=== PATIENT | female | born 1960 | race Caucasian/White ===

== ENCOUNTER 2018-11-27 11:54 | Emergency (ER) | payer BC, OTHER ==
[~2018-11-27] VITALS: Ht 172.7 cm; Wt 74.2 kg
--- NOTE | 2018-11-27 12:14 | NUR ---
Pt presents for CP to left chest since yesterday. Pt states pain radiating down arm yesterday and had trouble lifting arm. Tender to palp. SR on monitor. Pt NAD.
[2018-11-27] MEDS ORDERED: ASPIRIN 81 MG TABLET CHEW PO ONE (12:30)
[2018-11-27] MEDS ORDERED: NITROGLYCERIN SINGLE TAB 0.4 MG SL PRN (12:30)
[2018-11-27] MEDS ORDERED: SODIUM CHLORIDE FLUSH 10ML SYR IVF ONE (12:30)
[2018-11-27] MEDS ORDERED: NITROGLYCERIN SINGLE TAB 0.4 MG SL ONE ×2 (12:35→13:39)
[2018-11-27] MEDS ORDERED: ASPIRIN 81 MG TABLET CHEW ONE (12:35)
[2018-11-27 12:48] LABS: BASOPHILS # (AUTO) 0.06 x10^3/uL (0-0.1); BASOPHILS % (AUTO) 1 % (0-1); EOSINOPHILS # (AUTO) 0.14 x10^3/uL (0-0.4); EOSINOPHILS % (AUTO) 2 % (1-7); LYMPHOCYTES # (AUTO) 2.93 x10^3/uL (1-3.4); LYMPHOCYTES % (AUTO) 43 % (22-44); MD NO; MEAN CORPUSCULAR HEMOGLOBIN 27.9 pg (27.0-34.8); MEAN CORPUSCULAR HGB CONC 33.5 g/dL (32.4-35.8); MEAN CORPUSCULAR VOLUME 83.3 fL (80-100); MEAN PLATELET VOLUME 8.5 fL (7.4-10.4); MONOCYTES # (AUTO) 0.47 x10^3/uL (0.2-0.8); MONOCYTES % (AUTO) 7 % (2-9); NEUTROPHILS # (AUTO) 3.26 x10^3/uL (1.8-6.8); NEUTROPHILS % (AUTO) 48 % (42-75); PLATELET COUNT 252 x10^3/uL (130-400); RED BLOOD COUNT 5.12 x10^6/uL (3.82-5.3); RED CELL DISTRIBUTION WIDTH 13.1 % (9.6-15.2)
[2018-11-27 12:51] LABS: ALBUMIN 3.8 g/dL (3.4-5.0); ANION GAP 7 mmol/L (5-15); CHLORIDE 108 mmol/L (98-107); CREATININE 0.86 mg/dL (0.55-1.02)
[2018-11-27 12:55] LABS: TROPONIN I < 0.015 ng/mL (0.000-0.045)
--- NOTE | 2018-11-27 12:57 | NUR ---
Spoke with Wendie, pt's daughter. Would like to be kept updated. [phone]
--- NOTE | 2018-11-27 13:41 | NUR ---
Pt improved with nitro. 2nd 0.4mg given.
--- NOTE | 2018-11-27 14:18 | NUR ---
TASK RN: PT RESTING ON GURNEY. NADN. [place]. PT VERBALIZES SHE IS NOT SURE SHE WANTS TO STAY UNLESS HER INSURANCE IS ACTIVE. REGISTRATION ASSESSING IT.
[2018-11-27 14:45] VITALS: BP 129/46
--- NOTE | 2018-11-27 14:45 | NUR ---
TASK RN: PT ATTEMPTING TO FIND HER HEALTH INSURANCE.
--- NOTE | 2018-11-27 15:14 | NUR ---
TASK RN: PT UNABLE TO FIND INFORMATION ABOUT HER HEALTH INSURANCE. REGISTRATION ATTEMPTED MULTIPLE TIMES TO FIND PT INSURANCE AND WERE UNSUCCESSFUL. PT STATES SHE WANTS TO LEAVE AMA IF HER INSURANCE ISN'T ACTIVE. PT EDUCATED ON RISKS OF LEAVING AMA FOR CP THAT HAS RELIEF SECONDARY TO NITRO. PT VERBALIZES UNDERSTANDING. STILL WANTS TO LEAVE AMA. EDUCATED ON SX OF [place] FOR MEN AND WOMEN AND TO COME BACK FOR ANY INCREASED OR WORSENING SX. PT VERBALIZES UNDERSTANDING. PT SIGNED AMA SHEET. PLACED ON CHART. HORTENCIA HAMPTON'Alexandra.
== END 2018-11-27 15:18 | disposition home or self-care (01) ==
LOC: ED 13:39
DX: R07.2 Precordial pain (principal); M19.90 Unspecified osteoarthritis, unspecified site
CPT/HCPCS: 36415; 71045; 80048; 82040; 84484; 85025; 93005; 99284

== ENCOUNTER 2018-11-29 10:53 | Observation (INO) | payer BC, OTHER ==
[~2018-11-29] VITALS: Ht 172.7 cm; Wt 75.5 kg
--- NOTE | 2018-11-29 11:14 | NUR ---
pt was ambulatory to ED room 35. Voided urine specimen was provided. Dr Gomez now BS for exam. Pt A&OX4, resp even & unlabored, speech clear, skin WNL. States she was seen Thursday for CP, was advised to return, pt wanted to confirm insurance status prior to returning. C/O SOB interminttently "for awhile", "I thought it was my asthma", "I've noticed it more this month (past 30 days)". Currently: left-sided chest tightness lateral to sternum. Denies lightheadedness, dizziness, sweatiness, N/V. No meds taken for sx. Last oral intake: 929.
[2018-11-29] MEDS ORDERED: SODIUM CHLORIDE FLUSH 10ML SYR IVF ONE (11:30)
[2018-11-29] MEDS ORDERED: ASPIRIN 81 MG TABLET CHEW PO ONE (11:30)
[2018-11-29] MEDS ORDERED: ASTHMA INHALER (11:31)
[2018-11-29] MEDS ORDERED: PANT40TA5 PO (11:31)
[2018-11-29] MEDS ORDERED: [UNRECOGNIZED DRUG - REMARK] (11:31)
[2018-11-29 11:34] LABS: BASOPHILS # (AUTO) 0.05 x10^3/uL (0-0.1); BASOPHILS % (AUTO) 1 % (0-1); EOSINOPHILS # (AUTO) 0.21 x10^3/uL (0-0.4); EOSINOPHILS % (AUTO) 3 % (1-7); LYMPHOCYTES # (AUTO) 2.42 x10^3/uL (1-3.4); LYMPHOCYTES % (AUTO) 34 % (22-44); MD NO; MEAN CORPUSCULAR HEMOGLOBIN 27.4 pg (27.0-34.8); MEAN CORPUSCULAR HGB CONC 32.8 g/dL (32.4-35.8); MEAN CORPUSCULAR VOLUME 83.6 fL (80-100); MEAN PLATELET VOLUME 8.2 fL (7.4-10.4); MONOCYTES # (AUTO) 0.44 x10^3/uL (0.2-0.8); MONOCYTES % (AUTO) 6 % (2-9); NEUTROPHILS # (AUTO) 3.93 x10^3/uL (1.8-6.8); NEUTROPHILS % (AUTO) 56 % (42-75); PLATELET COUNT 265 x10^3/uL (130-400); RED CELL DISTRIBUTION WIDTH 13.2 % (9.6-15.2)
[2018-11-29] MEDS ORDERED: ASPIRIN 81 MG TABLET CHEW ONE (11:34)
[2018-11-29 12:19] LABS: ALBUMIN 3.9 g/dL (3.4-5.0); ANION GAP 6 mmol/L (5-15); CALCIUM 9.4 mg/dL (8.5-10.1); CHLORIDE 105 mmol/L (98-107)
[2018-11-29 12:24] LABS: CREATININE 1.04 mg/dL (0.55-1.02); TROPONIN I < 0.015 ng/mL (0.000-0.045)
--- NOTE | 2018-11-29 12:25 | NUR ---
PT RESTING COMFORTABLY ON BED, WATCHING TV. DENIES CHANGE IN CHEST PRESSURE. SIDE RAILS UP X2, CALL LIGHT W/IN REACH. AWAITING TEST RESULTS & DISPOSITION. MONITORING CONTINUES.
[2018-11-29] MEDS ORDERED: SODIUM CHLORIDE FLUSH 10ML SYR IVF PRN (13:00)
--- NOTE | 2018-11-29 13:17 | NUR ---
PT REPORT TO GERTRUDIS KIRK FOR ROOM [phone]
[2018-11-29] MEDS ORDERED: ONDANSETRON 2MG/ML, 2ML IVPush PRN (13:30)
[2018-11-29] MEDS ORDERED: ENALAPRILAT 1.25 MG/ML, 2ML IVPush PRN (13:30)
[2018-11-29] MEDS ORDERED: BISACODYL 10 MG SUPP PR PRN (13:30)
[2018-11-29] MEDS ORDERED: POLYETHYLENE GLYCOL 17 GM PACKET PO PRN (13:30)
[2018-11-29] MEDS ORDERED: DOCUSATE 100 MG CAPSULE PO PRN (13:30)
[2018-11-29] MEDS ORDERED: NITROGLYCERIN 0.4 MG BOTTLE (25 TABS) SL PRN (13:30)
[2018-11-29] MEDS ORDERED: LABETALOL 5MG/ML, 20ML IVPush PRN (13:30)
[2018-11-29] MEDS ORDERED: ONDANSETRON ODT 4 MG PO PRN (13:30)
[2018-11-29] MEDS ORDERED: FLUT1DIS3 INH (13:53)
[2018-11-29] MEDS ORDERED: ALBU8.5H8 INH (13:53)
[2018-11-29] MEDS ORDERED: BECL10.62 INH (13:53)
[2018-11-29 13:56] VITALS: BP 145/78
[2018-11-29 14:46] LABS: TROPONIN I < 0.015 ng/mL (0.000-0.045)
[2018-11-29 21:01] LABS: TROPONIN I < 0.015 ng/mL (0.000-0.045)
[2018-11-29 22:32] VITALS: BP 105/64
[2018-11-30] MEDS: ACETAMINOPHEN 325 MG TABLET PO PRN ×2 (01:49→08:09)
[2018-11-30 03:45] VITALS: BP 115/63
[2018-11-30] MEDS ORDERED: ASPIRIN 325 MG TABLET EC PO SCH (06:00)
[2018-11-30 07:15] VITALS: BP 115/73
[2018-11-30] MEDS ORDERED: PANTOPROZOLE 40MG TABLET PO SCH (09:00)
[2018-11-30 13:03] VITALS: BP 116/73
== END 2018-11-30 13:50 | disposition home or self-care (01) ==
LOC: ED 12:18 → EDIP 12:33 → INTOOBSV 12:33 → 5SO 13:39 → DCLOUNGE 11-30 13:44
PROVIDERS: ADMIT Hospitalist; ATTEND Hospitalist
DX: R07.89 Other chest pain (principal); J45.909 Unspecified asthma, uncomplicated; K90.0 Celiac disease; I10 Essential (primary) hypertension; I34.1 Nonrheumatic mitral (valve) prolapse; Z79.82 Long term (current) use of aspirin; Z82.3 Family history of stroke; Z87.891 Personal history of nicotine dependence; Z23 Encounter for immunization
CPT/HCPCS: 36415; 71045; 78452; 80048; 82040; 83735; 84145; 84443; 84484; 85025; 85379; 90471; 90656; 93005; 93017; 99284; A9502; C9898; G0378

== ENCOUNTER 2020-05-18 10:40 | Outpatient (CLI) | payer BC ==
[~2020-05-18 10:40] MED LIST: ALBU8.5H8 INH; ASTHMA INHALER; BECL10.62 INH; FLUT1DIS3 INH; PANT40TA5 PO; [UNRECOGNIZED DRUG - REMARK]
== END 2020-05-18 23:59 | disposition home or self-care (01) ==
LOC: CFH 10:40
PROVIDERS: ATTEND Family Medicine
DX: Z12.31 Encounter for screening mammogram for malignant neoplasm of breast (principal); N64.89 Other specified disorders of breast
CPT/HCPCS: 77067

== ENCOUNTER → 2020-06-13 | Outpatient (CLI) | payer BC | END | disposition home or self-care (01) | LOC: CFH 07:58 | PROVIDERS: ATTEND Family Medicine | DX: R92.2 Inconclusive mammogram (principal) | CPT/HCPCS: 77065; G0279 ==